=== PATIENT | male | born 1960 | race Caucasian/White ===

== ENCOUNTER 2016-11-16 11:21 | Emergency (ER) | payer OTHER ==
[2016-11-16] MEDS ORDERED: PERCOCET 10-325MG PO (11:34)
== END 2016-11-16 12:11 | disposition home or self-care (01) ==
LOC: SED 11:21
DX: R21 Rash and other nonspecific skin eruption (principal); I10 Essential (primary) hypertension; Z86.19 Personal history of other infectious and parasitic diseases; J44.9 Chronic obstructive pulmonary disease, unspecified; F17.200 Nicotine dependence, unspecified, uncomplicated; Z98.890 Other specified postprocedural states
CPT/HCPCS: 99283

== ENCOUNTER 2016-12-27 21:51 | Emergency (ER) | payer OTHER ==
[~2016-12-27] VITALS: Ht 167.6 cm; Wt 80.7 kg
[~2016-12-27 21:51] MED LIST: PERCOCET 10-325MG PO
== END 2016-12-28 02:30 | disposition home or self-care (01) ==
LOC: CED 21:51
DX: R21 Rash and other nonspecific skin eruption (principal); I10 Essential (primary) hypertension; Z86.19 Personal history of other infectious and parasitic diseases; F17.210 Nicotine dependence, cigarettes, uncomplicated; Z79.899 Other long term (current) drug therapy
CPT/HCPCS: 99282